=== PATIENT | female | born 1945 | race Caucasian/White ===

== ENCOUNTER 2017-06-16 19:28 | Emergency (ER) | payer MEDICARE, MEDICAID ==
[2017-06-16] MEDS: ASPIRIN 325 MG TAB PO (21:09)
[2017-06-16] MEDS: ONDANSETRON 4 MG INJ IV (21:09)
[2017-06-16] MEDS: LABETALOL HCL 20MG INJ IV (21:19)
[2017-06-16 21:34] LABS: ADD MAN DIFF? NO
[2017-06-16 21:36] LABS: BASOPHILS % 0.4 % (0.0-2.0); EOSINOPHILS # 0.1 10^3/ul (0.0-0.5); EOSINOPHILS % 0.5 % (0.0-7.0); HEMATOCRIT 37.6 % (37.0-47.0); HEMOGLOBIN 12.8 g/dl (12.0-16.0); LYMPHOCYTES # 2.7 10^3/ul (0.8-2.9); MEAN CORPUSCULAR HEMOGLOBIN 30.4 pg (29.0-33.0); MEAN CORPUSCULAR VOLUME 89.3 fl (82.0-101.0); MONOCYTE # 0.6 10^3/ul (0.3-0.9); MONOCYTES % 4.8 % (0.0-11.0); NEUTROPHILS % 69.9 % (39.0-77.0); PLATELET COUNT 368 10^3/UL (140-415); RED BLOOD COUNT 4.21 10^6/ul (4.20-5.40); RED CELL DISTRIBUTION WIDTH 12.1 % (11.5-14.5)
[2017-06-16 21:36] LABS: WHITE BLOOD COUNT 11.4 10^3/ul (4.8-10.8)
[2017-06-16 21:55] LABS: ANION GAP 14 (8-16); BLOOD UREA NITROGEN 9 mg/dl (7-20); CALCIUM 9.4 mg/dl (8.4-10.2); CARBON DIOXIDE 27 mmol/L (21-31); CHLORIDE 101 mmol/L (97-110); GLUCOSE 109 mg/dl (70-220); POTASSIUM 3.2 mmol/L (3.5-5.1); SODIUM 139 mmol/L (135-144)
[2017-06-16 22:07] LABS: B-TYPE NATRIURETIC PEPTIDE 228 PG/ML (0-125); TROPONIN-I 0.026 ng/ml (0.00-0.12)
== END 2017-06-16 22:37 | disposition home or self-care (01) ==
LOC: E/R 22:37
DX: D72.829 Elevated white blood cell count, unspecified (principal); R06.00 Dyspnea, unspecified; I10 Essential (primary) hypertension
CPT/HCPCS: 71045; 80048; 83880; 84484; 85025; 93005; 96374; 99285-25

== ENCOUNTER 2017-07-08 13:10 | Emergency (ER) | payer MEDICARE, OTHER, MEDICAID ==
[2017-07-08 13:27] LABS: ADD MAN DIFF? NO
[2017-07-08 13:28] LABS: BASOPHILS % 0.3 % (0.0-2.0); EOSINOPHILS % 0.3 % (0.0-7.0); HEMATOCRIT 41.6 % (37.0-47.0); HEMOGLOBIN 14.2 g/dl (12.0-16.0); LYMPHOCYTES # 2.3 10^3/ul (0.8-2.9); LYMPHOCYTES % 21.7 % (15.0-51.0); MEAN CORPUSCULAR HGB CONC 34.1 g/dl (32.0-37.0); MEAN CORPUSCULAR VOLUME 87.8 fl (82.0-101.0); MEAN PLATELET VOLUME 9.8 fl (7.4-10.4); MONOCYTE # 0.4 10^3/ul (0.3-0.9); MONOCYTES % 3.6 % (0.0-11.0); NEUTROPHIL # 7.9 10^3/ul (1.6-7.5); NEUTROPHILS % 73.7 % (39.0-77.0); PLATELET COUNT 357 10^3/UL (140-415); RED BLOOD COUNT 4.74 10^6/ul (4.20-5.40)
[2017-07-08 13:28] LABS: WHITE BLOOD COUNT 10.8 10^3/ul (4.8-10.8)
[2017-07-08] MEDS: ONDANSETRON 4 MG INJ IV (13:45)
[2017-07-08 13:47] LABS: ALANINE AMINOTRANSFERASE 22 IU/L (13-69); ALBUMIN 5.1 g/dl (3.3-4.9); ALBUMIN/GLOBULIN RATIO 1.54; ALKALINE PHOSPHATASE 86 IU/L (42-121); ANION GAP 22 (8-16); ASPARTATE AMINO TRANSFERASE 29 IU/L (15-46); BILIRUBIN,INDIRECT 0.1 mg/dl (0-1.1); BILIRUBIN,TOTAL 0.1 mg/dl (0.2-1.3); BLOOD UREA NITROGEN 9 mg/dl (7-20); CALCIUM 10.2 mg/dl (8.4-10.2); CARBON DIOXIDE 22 mmol/L (21-31); CHLORIDE 102 mmol/L (97-110); CREATININE 0.82 mg/dl (0.44-1.00); GLUCOSE 115 mg/dl (70-220); LIPASE 108 U/L (23-300); POTASSIUM 3.7 mmol/L (3.5-5.1); SODIUM 142 mmol/L (135-144); TOTAL PROTEIN 8.4 g/dl (6.1-8.1)
[2017-07-08] MEDS: LORAZEPAM 0.5 MG TAB PO (13:47)
[2017-07-08] MEDS: SOD CHLORIDE 0.9% 500 ML IV (13:48)
[2017-07-08 13:59] LABS: TROPONIN-I 0.015 ng/ml (0.00-0.12)
[2017-07-08 14:02] LABS: ADD UMIC YES; UR ASCORBIC ACID NEGATIVE (NEGATIVE); UR BACTERIA FEW /HPF (NONE SEEN); UR BILIRUBIN (Dip) NEGATIVE (NEGATIVE); UR BLOOD (Dip) 1+ mg/dL (NEGATIVE); UR CLARITY SLIGHTLY CLOUDY (CLEAR); UR COLOR YELLOW (YELLOW); UR GLUCOSE (Dip) NEGATIVE (NEGATIVE); UR KETONES (Dip) NEGATIVE (NEGATIVE); UR LEUKOCYTE ESTERASE (Dip) 1+ Leu/ul (NEGATIVE); UR MUCUS FEW /HPF (NONE SEEN); UR NITRITE (Dip) NEGATIVE (NEGATIVE); UR RBC 4 /HPF (0-5); UR SPECIFIC GRAVITY (Dip) 1.023 (1.003-1.030); UR SQUAMOUS EPITHELIAL CELL FEW /HPF (FEW); UR TOTAL PROTEIN (Dip) 2+ mg/dl (NEGATIVE); UR UROBILINOGEN (Dip) NEGATIVE (NEGATIVE); UR WBC 3 /HPF (0-5)
[2017-07-08] MEDS: CEPHALEXIN 500 MG CAP PO (14:31)
== END 2017-07-08 14:30 | disposition home or self-care (01) ==
LOC: E/R 13:10
DX: F43.0 Acute stress reaction (principal); N39.0 Urinary tract infection, site not specified; I10 Essential (primary) hypertension; E11.9 Type 2 diabetes mellitus without complications; E66.9 Obesity, unspecified; Z79.84 Long term (current) use of oral hypoglycemic drugs; Z68.31 Body mass index [BMI] 31.0-31.9, adult
CPT/HCPCS: 36415; 80053; 81001; 83690; 84484; 85025; 93005; 96374; 99284-25

== ENCOUNTER 2017-11-30 18:40 | Emergency (ER) | payer MEDICARE, OTHER ==
[2017-11-30] MEDS: ONDANSETRON 4 MG INJ IV (20:47)
[2017-11-30] MEDS: SOD CHLORIDE 0.9% 500 ML IV (20:47)
[2017-11-30] MEDS: morphine 4 MG/ML VIAL IV (20:47)
[2017-11-30 20:48] LABS: ADD MAN DIFF? NO
[2017-11-30 20:57] LABS: BASOPHILS % 0.3 % (0.0-2.0); EOSINOPHILS # 0.1 10^3/ul (0.0-0.5); EOSINOPHILS % 1.3 % (0.0-7.0); HEMATOCRIT 39.1 % (37.0-47.0); HEMOGLOBIN 12.7 g/dl (12.0-16.0); LYMPHOCYTES # 3.2 10^3/ul (0.8-2.9); LYMPHOCYTES % 34.3 % (15.0-51.0); MEAN CORPUSCULAR HEMOGLOBIN 28.7 pg (29.0-33.0); MEAN CORPUSCULAR HGB CONC 32.5 g/dl (32.0-37.0); MEAN CORPUSCULAR VOLUME 88.5 fl (82.0-101.0); MEAN PLATELET VOLUME 10.3 fl (7.4-10.4); MONOCYTE # 0.4 10^3/ul (0.3-0.9); MONOCYTES % 4.3 % (0.0-11.0); NEUTROPHIL # 5.5 10^3/ul (1.6-7.5); NEUTROPHILS % 59.6 % (39.0-77.0); PLATELET COUNT 302 10^3/UL (140-415); RED BLOOD COUNT 4.42 10^6/ul (4.20-5.40)
[2017-11-30 20:57] LABS: WHITE BLOOD COUNT 9.2 10^3/ul (4.8-10.8)
[2017-11-30 21:19] LABS: ADD UMIC YES; UR ASCORBIC ACID NEGATIVE (NEGATIVE); UR BILIRUBIN (Dip) NEGATIVE (NEGATIVE); UR BLOOD (Dip) NEGATIVE (NEGATIVE); UR CLARITY CLEAR (CLEAR); UR COLOR STRAW (YELLOW); UR GLUCOSE (Dip) NEGATIVE (NEGATIVE); UR KETONES (Dip) NEGATIVE (NEGATIVE); UR LEUKOCYTE ESTERASE (Dip) TRACE Leu/ul (NEGATIVE); UR NITRITE (Dip) NEGATIVE (NEGATIVE); UR RBC 0 /HPF (0-5); UR SPECIFIC GRAVITY (Dip) 1.004 (1.003-1.030); UR TOTAL PROTEIN (Dip) NEGATIVE (NEGATIVE); UR UROBILINOGEN (Dip) NEGATIVE (NEGATIVE); UR WBC 2 /HPF (0-5)
[2017-11-30 21:21] LABS: ALANINE AMINOTRANSFERASE 19 IU/L (13-69); ALBUMIN 4.5 g/dl (3.3-4.9); ALKALINE PHOSPHATASE 50 IU/L (42-121); ANION GAP 12 (8-16); ASPARTATE AMINO TRANSFERASE 28 IU/L (15-46); BILIRUBIN,INDIRECT 0.2 mg/dl (0-1.1); BILIRUBIN,TOTAL 0.2 mg/dl (0.2-1.3); BLOOD UREA NITROGEN 10 mg/dl (7-20); CALCIUM 9.5 mg/dl (8.4-10.2); CARBON DIOXIDE 24 mmol/L (21-31); CHLORIDE 109 mmol/L (97-110); CREATININE 0.56 mg/dl (0.44-1.00); GLUCOSE 98 mg/dl (70-220); LIPASE 70 U/L (23-300); POTASSIUM 3.9 mmol/L (3.5-5.1); SODIUM 141 mmol/L (135-144); TOTAL PROTEIN 7.5 g/dl (6.1-8.1)
[2017-11-30] MEDS ORDERED: IOHEXOL 100 ML (21:54)
[2017-11-30] MEDS ORDERED: SOD CHLORIDE 0.9% 100 ML (21:54)
[2017-11-30] MEDS: NICARDipine HCL 30 MG CAPSULE PO (22:54)
[2017-11-30] MEDS: HYDROCODONE/APAP (10/325) TAB PO (23:00)
[2017-11-30] MEDS: ONDANSETRON (ODT) 4 MG TAB ODT (23:00)
== END 2017-11-30 23:00 | disposition home or self-care (01) ==
LOC: E/R 18:40
DX: I16.0 Hypertensive urgency (principal); R40.2142 Coma scale, eyes open, spontaneous, at arrival to emergency department; R40.2252 Coma scale, best verbal response, oriented, at arrival to emergency department; R40.2362 Coma scale, best motor response, obeys commands, at arrival to emergency department; I10 Essential (primary) hypertension; Z79.84 Long term (current) use of oral hypoglycemic drugs
CPT/HCPCS: 36415; 75635; 80053; 81001; 83690; 85025; 96374; 96375; 99285-25

== ENCOUNTER 2018-08-30 10:11 | Observation (INO) | payer MEDICARE, OTHER ==
[2018-08-30] MEDS: SOD CHLORIDE 0.9% 1,000 ML IV (10:56)
[2018-08-30] MEDS: LORAZEPAM 2 MG INJ IV (10:58)
[2018-08-30] MEDS: LIDOCAINE/MYLANTA 40 ML BTL PO (10:58)
[2018-08-30] MEDS: KETOROLAC 15 MG INJ IV (10:58)
[2018-08-30] MEDS: ONDANSETRON 4 MG INJ IV ×3 (10:58→20:13)
[2018-08-30] MEDS: FAMOTIDINE 20 MG TAB PO (10:58)
[2018-08-30] MEDS: BELLADONNA/PHENOBARBITAL TAB PO (10:58)
[2018-08-30] MEDS: PANTOPRAZOLE 40 MG INJ IV ×2 (10:59→17:15)
[2018-08-30 11:13] LABS: ADD MAN DIFF? NO
[2018-08-30 11:15] LABS: BASOPHILS % 0.2 % (0.0-2.0); EOSINOPHILS # 0.1 10^3/ul (0.0-0.5); EOSINOPHILS % 0.9 % (0.0-7.0); HEMATOCRIT 40.8 % (37.0-47.0); HEMOGLOBIN 13.1 g/dl (12.0-16.0); LYMPHOCYTES # 2.2 10^3/ul (0.8-2.9); LYMPHOCYTES % 26.9 % (15.0-51.0); MEAN CORPUSCULAR HEMOGLOBIN 28.7 pg (29.0-33.0); MEAN CORPUSCULAR HGB CONC 32.1 g/dl (32.0-37.0); MEAN CORPUSCULAR VOLUME 89.5 fl (82.0-101.0); MEAN PLATELET VOLUME 10.2 fl (7.4-10.4); MONOCYTE # 0.4 10^3/ul (0.3-0.9); MONOCYTES % 4.6 % (0.0-11.0); NEUTROPHIL # 5.4 10^3/ul (1.6-7.5); PLATELET COUNT 355 10^3/UL (140-415); RED BLOOD COUNT 4.56 10^6/ul (4.20-5.40); RED CELL DISTRIBUTION WIDTH 13.2 % (11.5-14.5)
[2018-08-30 11:32] LABS: ALANINE AMINOTRANSFERASE 21 IU/L (13-69); ALBUMIN 4.2 g/dl (3.3-4.9); ALBUMIN/GLOBULIN RATIO 1.16; ALKALINE PHOSPHATASE 86 IU/L (42-121); ANION GAP 11 (5-13); ASPARTATE AMINO TRANSFERASE 24 IU/L (15-46); BILIRUBIN,INDIRECT 0.3 mg/dl (0-1.1); BILIRUBIN,TOTAL 0.3 mg/dl (0.2-1.3); BLOOD UREA NITROGEN 13 mg/dl (7-20); CALCIUM 9.9 mg/dl (8.4-10.2); CARBON DIOXIDE 22 mmol/L (21-31); CHLORIDE 110 mmol/L (97-110); CREATININE 0.71 mg/dl (0.44-1.00); GLUCOSE 116 mg/dl (70-220); LIPASE 182 U/L (23-300); SODIUM 143 mmol/L (135-144); TOTAL PROTEIN 7.8 g/dl (6.1-8.1)
[2018-08-30 11:36] LABS: INR 0.85; PROTIME 11.7 Sec (11.9-14.9); PT RATIO 0.9
[2018-08-30 11:37] LABS: PARTIAL THROMBOPLASTIN TIME 28.6 Sec (23.0-35.0)
[2018-08-30 11:43] LABS: TROPONIN-I < 0.012 ng/ml (0.000-0.120)
[2018-08-30] MEDS: morphine 4 MG/ML VIAL IV (13:08)
[2018-08-30] MEDS ORDERED: NACL 0.9% 3 ML SYG IV (14:30)
[2018-08-30] MEDS ORDERED: ALBUTEROL/IPRATROPIUM (NEB) 3 ML AMP HHN (14:30)
[2018-08-30] MEDS ORDERED: NITROGLYCERIN (SL) 0.4 MG TAB SL (14:30)
[2018-08-30] MEDS ORDERED: MECLIZINE 25 MG TAB PO (14:30)
[2018-08-30] MEDS ORDERED: morphine 2 MG INJ IV (14:30)
[2018-08-30] MEDS ORDERED: DOCUSATE SODIUM 100 MG CAP PO (14:30)
[2018-08-30] MEDS ORDERED: MAGNESIUM HYDROXIDE 30ML CUP PO (14:30)
[2018-08-30] MEDS: SOD CHLORIDE 0.45% 1,000 ML IV ×2 (15:30→20:13)
[2018-08-30] MEDS: ATORVASTATIN 80 MG TAB PO (20:24)
[2018-08-30] MEDS: METOPROLOL 100 MG TAB PO (20:24)
[2018-08-30] MEDS: TRIAMCINOLONE ACET 0.1% 15 GM CR TOP (21:00)
[2018-08-30] MEDS: BETAMETHASONE/CLOTRIMAZOLE 15 GM CR TOP (21:00)
[2018-08-30] MEDS ORDERED: NON-FORMULARY/PATIENT OWN MED (Rosuvastatin Calcium* (Crestor*) 20 MG) PO (21:00)
[2018-08-30] MEDS: ACETAMINOPHEN 325 MG TAB PO (23:59)
[2018-08-31] MEDS: ZOLPIDEM 5 MG TAB PO (00:05)
[2018-08-31] MEDS: ONDANSETRON 4 MG INJ IV (02:53)
[2018-08-31] MEDS: LORAZEPAM 2 MG INJ IV (03:07)
[2018-08-31] MEDS: SOD CHLORIDE 0.45% 1,000 ML IV ×2 (03:26→16:46)
[2018-08-31] MEDS: LEVOTHYROXINE 25 MCG TAB PO (06:05)
[2018-08-31] MEDS: PANTOPRAZOLE 40 MG INJ IV ×2 (06:05→17:26)
[2018-08-31 06:28] LABS: ADD MAN DIFF? NO
[2018-08-31 06:36] LABS: WHITE BLOOD COUNT 8.1 10^3/ul (4.8-10.8)
[2018-08-31 06:36] LABS: BASOPHILS % 0.4 % (0.0-2.0); EOSINOPHILS # 0.1 10^3/ul (0.0-0.5); EOSINOPHILS % 0.9 % (0.0-7.0); HEMATOCRIT 39.7 % (37.0-47.0); HEMOGLOBIN 12.8 g/dl (12.0-16.0); LYMPHOCYTES # 2.2 10^3/ul (0.8-2.9); LYMPHOCYTES % 27.5 % (15.0-51.0); MEAN CORPUSCULAR HEMOGLOBIN 28.8 pg (29.0-33.0); MEAN CORPUSCULAR HGB CONC 32.2 g/dl (32.0-37.0); MEAN CORPUSCULAR VOLUME 89.4 fl (82.0-101.0); MEAN PLATELET VOLUME 10.5 fl (7.4-10.4); MONOCYTE # 0.4 10^3/ul (0.3-0.9); NEUTROPHIL # 5.3 10^3/ul (1.6-7.5); NEUTROPHILS % 65.7 % (39.0-77.0); PLATELET COUNT 349 10^3/UL (140-415); RED BLOOD COUNT 4.44 10^6/ul (4.20-5.40); RED CELL DISTRIBUTION WIDTH 13.1 % (11.5-14.5)
[2018-08-31 06:58] LABS: CHOLESTEROL 268 mg/dl (100-200)
[2018-08-31 06:58] LABS: HDL CHOLESTEROL 53 mg/dl (33-92); LDL CHOLESTEROL,CALCULATED 186 mg/dl; TRIGLYCERIDES 145 mg/dl (0-149)
[2018-08-31 06:59] LABS: ANION GAP 10 (5-13); BLOOD UREA NITROGEN 10 mg/dl (7-20); CALCIUM 9.4 mg/dl (8.4-10.2); CARBON DIOXIDE 21 mmol/L (21-31); CHLORIDE 111 mmol/L (97-110); CREATININE 0.65 mg/dl (0.44-1.00); GLUCOSE 107 mg/dl (70-220); PHOSPHORUS 4.1 mg/dl (2.5-4.9); POTASSIUM 3.8 mmol/L (3.5-5.1); SODIUM 142 mmol/L (135-144)
[2018-08-31] MEDS ORDERED: PROPOFOL 200 MG INJ (07:00)
[2018-08-31 07:29] LABS: THYROID STIMULATING HORMONE 0.607 MIU/L (0.465-4.680)
[2018-08-31 07:33] LABS: HEMOGLOBIN A1C 5.7 % (0-5.9)
[2018-08-31] MEDS: METOPROLOL 100 MG TAB PO ×2 (08:21→21:29)
[2018-08-31] MEDS: AMLODIPINE 5 MG TAB PO (08:22)
[2018-08-31] MEDS: MIRTAZAPINE 15 MG TAB PO (08:22)
[2018-08-31] MEDS: VERAPAMIL (SR) 120 MG TAB PO (11:25)
[2018-08-31] MEDS: hydrALAzine 20 MG INJ IV (11:25)
[2018-08-31] MEDS: TRIAMCINOLONE ACET 0.1% 15 GM CR TOP ×3 (13:00→21:00)
[2018-08-31] MEDS ORDERED: FENTAnyl 50 MCG/ML VIAL IV (14:30)
[2018-08-31] MEDS ORDERED: ALBUTEROL 0.083% (NEB) 2.5 MG/3 ML AMP HHN (14:30)
[2018-08-31] MEDS ORDERED: LABETALOL HCL 20MG INJ IV ×2 (14:30→16:00)
[2018-08-31] MEDS ORDERED: ONDANSETRON 4 MG INJ IV (14:30)
[2018-08-31] MEDS ORDERED: hydrALAzine 20 MG INJ IV ×2 (14:30→16:00)
[2018-08-31] MEDS ORDERED: DIPHENHYDRAMINE 50 MG INJ IV (14:30)
[2018-08-31] MEDS ORDERED: EPHEDrine SULFATE 50 MG/5 ML SYG IV ×2 (14:30→16:00)
[2018-08-31] MEDS: PROPOFOL 40 ML (14:39)
[2018-08-31] MEDS: LIDOCAINE 2% (SDV) 5 ML INJ (14:40)
[2018-08-31] MEDS: BETAMETHASONE/CLOTRIMAZOLE 15 GM CR TOP ×2 (17:27→21:00)
[2018-08-31] MEDS: ATORVASTATIN 80 MG TAB PO (21:29)
[2018-09-01] MEDS: HYDROCODONE/APAP (5/325) TAB PO (04:17)
[2018-09-01] MEDS: SOD CHLORIDE 0.45% 1,000 ML IV (06:06)
[2018-09-01 06:09] LABS: ADD MAN DIFF? NO
[2018-09-01 06:18] LABS: BASOPHILS % 0.4 % (0.0-2.0); EOSINOPHILS # 0.1 10^3/ul (0.0-0.5); EOSINOPHILS % 1.1 % (0.0-7.0); HEMATOCRIT 39.6 % (37.0-47.0); HEMOGLOBIN 12.6 g/dl (12.0-16.0); LYMPHOCYTES # 2.3 10^3/ul (0.8-2.9); LYMPHOCYTES % 33.2 % (15.0-51.0); MEAN CORPUSCULAR HEMOGLOBIN 28.6 pg (29.0-33.0); MEAN CORPUSCULAR HGB CONC 31.8 g/dl (32.0-37.0); MEAN CORPUSCULAR VOLUME 89.8 fl (82.0-101.0); MEAN PLATELET VOLUME 10.3 fl (7.4-10.4); MONOCYTE # 0.4 10^3/ul (0.3-0.9); NEUTROPHIL # 4.1 10^3/ul (1.6-7.5); NEUTROPHILS % 58.9 % (39.0-77.0); PLATELET COUNT 353 10^3/UL (140-415); RED BLOOD COUNT 4.41 10^6/ul (4.20-5.40); RED CELL DISTRIBUTION WIDTH 13.5 % (11.5-14.5)
[2018-09-01] MEDS: LEVOTHYROXINE 25 MCG TAB PO (06:24)
[2018-09-01] MEDS: PANTOPRAZOLE 40 MG INJ IV (06:24)
[2018-09-01 06:47] LABS: ANION GAP 7 (5-13)
[2018-09-01 07:08] LABS: BLOOD UREA NITROGEN 9 mg/dl (7-20); CARBON DIOXIDE 23 mmol/L (21-31); CHLORIDE 113 mmol/L (97-110); CREATININE 0.69 mg/dl (0.44-1.00); GLUCOSE 115 mg/dl (70-220); POTASSIUM 3.6 mmol/L (3.5-5.1); SODIUM 143 mmol/L (135-144)
[2018-09-01] MEDS: MIRTAZAPINE 15 MG TAB PO (09:00)
[2018-09-01] MEDS: BETAMETHASONE/CLOTRIMAZOLE 15 GM CR TOP (09:13)
[2018-09-01] MEDS: VERAPAMIL (SR) 120 MG TAB PO (09:13)
[2018-09-01] MEDS: TRIAMCINOLONE ACET 0.1% 15 GM CR TOP (09:13)
[2018-09-01] MEDS: DILTIAZEM (CD) 180 MG CAP PO (09:14)
[2018-09-01] MEDS: AMLODIPINE 5 MG TAB PO (09:14)
[2018-09-01] MEDS: METOPROLOL 100 MG TAB PO (09:14)
[2018-09-01] MEDS: ACETAMINOPHEN 325 MG TAB PO (14:31)
[2018-09-01] MEDS ORDERED: PANTOPRAZOLE (EC) 40 MG TAB PO (18:00)
== END 2018-09-01 14:44 | disposition home or self-care (01) ==
LOC: E/R 10:11 → 2NE 15:32 → 6WM 21:50
DX: K29.50 Unspecified chronic gastritis without bleeding (principal); K44.9 Diaphragmatic hernia without obstruction or gangrene; I10 Essential (primary) hypertension; E03.9 Hypothyroidism, unspecified; I48.91 Unspecified atrial fibrillation; Z79.82 Long term (current) use of aspirin
CPT/HCPCS: 36415; 71045; 74018; 80048; 80053; 80061; 83036; 83690; 83735; 84100; 84439; 84443; 84484; 85025; 85610; 85730; 88305; 88312; 92610; 93005; 96374; 96375; 96376; 97161; 97167; 99285-25; G0378

== ENCOUNTER 2018-09-10 17:47 | Emergency (ER) | payer MEDICARE, OTHER ==
[2018-09-10] MEDS: METOCLOPRAMIDE 10 MG INJ IV (18:36)
[2018-09-10] MEDS: LORAZEPAM 2 MG INJ IV (18:55)
[2018-09-10 19:49] LABS: ADD MAN DIFF? NO
[2018-09-10 19:50] LABS: WHITE BLOOD COUNT 9.6 10^3/ul (4.8-10.8)
[2018-09-10 19:50] LABS: BASOPHILS % 0.2 % (0.0-2.0); EOSINOPHILS % 0.4 % (0.0-7.0); HEMATOCRIT 35.2 % (37.0-47.0); HEMOGLOBIN 11.3 g/dl (12.0-16.0); LYMPHOCYTES # 2.1 10^3/ul (0.8-2.9); LYMPHOCYTES % 21.7 % (15.0-51.0); MEAN CORPUSCULAR HEMOGLOBIN 28.7 pg (29.0-33.0); MEAN CORPUSCULAR HGB CONC 32.1 g/dl (32.0-37.0); MEAN CORPUSCULAR VOLUME 89.3 fl (82.0-101.0); MEAN PLATELET VOLUME 10.3 fl (7.4-10.4); MONOCYTE # 0.4 10^3/ul (0.3-0.9); MONOCYTES % 3.8 % (0.0-11.0); NEUTROPHIL # 7.1 10^3/ul (1.6-7.5); NEUTROPHILS % 73.6 % (39.0-77.0); PLATELET COUNT 342 10^3/UL (140-415); RED BLOOD COUNT 3.94 10^6/ul (4.20-5.40); RED CELL DISTRIBUTION WIDTH 13.2 % (11.5-14.5)
[2018-09-10] MEDS: ONDANSETRON 4 MG INJ IV (19:51)
[2018-09-10] MEDS: SOD CHLORIDE 0.9% 500 ML IV (19:51)
[2018-09-10] MEDS: FAMOTIDINE 20 MG INJ IV (19:51)
[2018-09-10 20:01] LABS: ALANINE AMINOTRANSFERASE 12 IU/L (13-69); ALBUMIN/GLOBULIN RATIO 1.37; ALKALINE PHOSPHATASE 73 IU/L (42-121); ANION GAP 9 (5-13); ASPARTATE AMINO TRANSFERASE 19 IU/L (15-46); BILIRUBIN,INDIRECT 0.4 mg/dl (0-1.1); BILIRUBIN,TOTAL 0.4 mg/dl (0.2-1.3); BLOOD UREA NITROGEN 10 mg/dl (7-20); CALCIUM 9.3 mg/dl (8.4-10.2); CARBON DIOXIDE 22 mmol/L (21-31); CHLORIDE 110 mmol/L (97-110); CREATININE 0.76 mg/dl (0.44-1.00); GLUCOSE 102 mg/dl (70-220); POTASSIUM 3.9 mmol/L (3.5-5.1); SODIUM 141 mmol/L (135-144); TOTAL PROTEIN 6.9 g/dl (6.1-8.1)
== END 2018-09-10 22:25 | disposition home or self-care (01) ==
LOC: E/R 17:47
DX: K29.50 Unspecified chronic gastritis without bleeding (principal); I10 Essential (primary) hypertension; E03.9 Hypothyroidism, unspecified; R40.2142 Coma scale, eyes open, spontaneous, at arrival to emergency department; R40.2362 Coma scale, best motor response, obeys commands, at arrival to emergency department; R40.2252 Coma scale, best verbal response, oriented, at arrival to emergency department; Z79.82 Long term (current) use of aspirin
CPT/HCPCS: 80053; 85025; 96374; 96375; 99284-25

== ENCOUNTER 2018-10-07 13:24 | Emergency (ER) | payer MEDICARE, OTHER ==
[2018-10-07 13:43] LABS: ADD MAN DIFF? NO
[2018-10-07] MEDS: LORAZEPAM 2 MG INJ IV (13:46)
[2018-10-07] MEDS: ONDANSETRON 4 MG INJ IV (13:46)
[2018-10-07 13:48] LABS: WHITE BLOOD COUNT 10.3 10^3/ul (4.8-10.8)
[2018-10-07 13:48] LABS: BASOPHILS % 0.2 % (0.0-2.0); EOSINOPHILS % 0.4 % (0.0-7.0); HEMATOCRIT 39.4 % (37.0-47.0); HEMOGLOBIN 12.6 g/dl (12.0-16.0); LYMPHOCYTES # 2.3 10^3/ul (0.8-2.9); MEAN CORPUSCULAR HEMOGLOBIN 28.1 pg (29.0-33.0); MEAN CORPUSCULAR VOLUME 87.9 fl (82.0-101.0); MEAN PLATELET VOLUME 10.1 fl (7.4-10.4); MONOCYTE # 0.4 10^3/ul (0.3-0.9); MONOCYTES % 3.9 % (0.0-11.0); NEUTROPHIL # 7.5 10^3/ul (1.6-7.5); NEUTROPHILS % 72.9 % (39.0-77.0); PLATELET COUNT 391 10^3/UL (140-415); RED BLOOD COUNT 4.48 10^6/ul (4.20-5.40); RED CELL DISTRIBUTION WIDTH 13.8 % (11.5-14.5)
[2018-10-07] MEDS: KETOROLAC 30 MG INJ IV (14:03)
[2018-10-07 14:08] LABS: ALANINE AMINOTRANSFERASE 12 IU/L (13-69); ALBUMIN 4.4 g/dl (3.3-4.9); ALBUMIN/GLOBULIN RATIO 1.46; ALKALINE PHOSPHATASE 71 IU/L (42-121); ANION GAP 11 (5-13); ASPARTATE AMINO TRANSFERASE 21 IU/L (15-46); BILIRUBIN,INDIRECT 0.6 mg/dl (0-1.1); BILIRUBIN,TOTAL 0.6 mg/dl (0.2-1.3); BLOOD UREA NITROGEN 8 mg/dl (7-20); CALCIUM 9.8 mg/dl (8.4-10.2); CARBON DIOXIDE 23 mmol/L (21-31); CHLORIDE 108 mmol/L (97-110); CREATININE 0.71 mg/dl (0.44-1.00); GLUCOSE 132 mg/dl (70-220); LIPASE 66 U/L (23-300); POTASSIUM 3.8 mmol/L (3.5-5.1); SODIUM 142 mmol/L (135-144); TOTAL PROTEIN 7.4 g/dl (6.1-8.1)
[2018-10-07] MEDS: LABETALOL HCL 20MG INJ IV (14:10)
[2018-10-07 14:17] LABS: TROPONIN-I 0.016 ng/ml (0.000-0.120)
== END 2018-10-07 15:41 | disposition home or self-care (01) ==
LOC: E/R 13:24
DX: I10 Essential (primary) hypertension (principal); F41.0 Panic disorder [episodic paroxysmal anxiety]; R11.2 Nausea with vomiting, unspecified; E03.9 Hypothyroidism, unspecified; Z79.84 Long term (current) use of oral hypoglycemic drugs
CPT/HCPCS: 36415; 71045; 80053; 83690; 84484; 85025; 93005; 96374; 96375; 99285-25